=== PATIENT | female | born 1950 | race Caucasian/White ===

== ENCOUNTER → 2016-08-19 | Outpatient (CLI) | payer BC ==
[~2016-08-19] MED LIST: ADVAIR DIS1 PUFF/DO2 IH; COUMADIN2.5 MG PO; DELTASONE DPS20 MG PO; DUONEB DPS3 ML IH; LIALDA1.2 GM PO; LOMOTIL-DPS1 TAB PO; MONTELUKAST SOD10 MG PO; MUCINEX600 MG PO; SPIRIVA18 MCG IH; SYNTHROID DP0.075 MG PO; TYLENOL DPS325 MG PO; ZOCOR DPS20 MG PO
== END | disposition home or self-care (01) ==
DX: J44.9 Chronic obstructive pulmonary disease, unspecified (principal); R94.2 Abnormal results of pulmonary function studies; J98.4 Other disorders of lung; I51.89 Other ill-defined heart diseases; Z87.891 Personal history of nicotine dependence

== ENCOUNTER → 2016-09-23 | Outpatient (CLI) | payer BC | END | disposition home or self-care (01) | LOC: PTH.S 09-17 08:23 | DX: J44.9 Chronic obstructive pulmonary disease, unspecified (principal); R06.00 Dyspnea, unspecified; Z99.81 Dependence on supplemental oxygen ==

== ENCOUNTER 2016-11-23 13:05 | Emergency (ER) | payer BC ==
--- NOTE | 2016-12-11 20:23 | ER ---
ADMIT: 11/23/2016 RM/LOC: ER [facility] MR#: [id number] [address] [id number] DAGOBERTO SANCHEZ [address] [address] Emergency Room Report SEX: F AGE: 66 : 1950 DATE: 11/23/2016 ADDENDUM: The patient is a 66-year-old female with severe COPD, who was oxygen dependent, comes in with difficulty breathing and shortness of breath. This has been going on for several hours. Physical exam shows that she is tachypneic with decreased air movement throughout. While in the ER, we did get her Solu-Medrol 125 mg IV and breathing treatments. Her chest x-ray did not show any acute findings. CBC was unremarkable. CMP was also unremarkable. The patient was feeling much better in the ER after the steroids and breathing treatment. She does want to try to go home. So the patient is discharged home on prednisone, Z-Ramírez, and increased use of her albuterol nebulizer. She is to return to the ER for any concerning symptoms. Follow up at Dr. Briceño's office in the next week. DIAGNOSES: 1. Chronic obstructive pulmonary disease exacerbation. 2. Shortness of breath. Ernst Hale MD/ viktoria JOB #: [id number] CC: Ernst Hale MD, Attending Physician Bobo Briceño MD, Family Physician
== END 2016-11-23 15:22 | disposition home or self-care (01) ==
LOC: ER 13:05
DX: J44.1 Chronic obstructive pulmonary disease with (acute) exacerbation (principal); Z90.89 Acquired absence of other organs; Z90.49 Acquired absence of other specified parts of digestive tract; Z86.711 Personal history of pulmonary embolism; Z87.891 Personal history of nicotine dependence; Z88.7 Allergy status to serum and vaccine; Z91.041 Radiographic dye allergy status; Z88.8 Allergy status to other drugs, medicaments and biological substances; Z79.01 Long term (current) use of anticoagulants; Z79.899 Other long term (current) drug therapy

== ENCOUNTER 2016-11-24 12:51 | Emergency (ER) | payer BC ==
--- NOTE | 2016-11-25 16:09 | ER ---
ADMIT: 11/24/2016 RM/LOC: ER [facility] MR#: [id number] [facility] [id number] DAGOBERTO SANCHEZ [address] [place] [address] Emergency Room Report SEX: F AGE: 66 : 1950 DATE: 11/24/2016 ADDENDUM: A 66-year-old white female coming in with shortness of breath, has COPD exacerbation. Chest x-ray, nothing acute. CBC, chemistry, troponin, INR is 1.18. She is on Coumadin because of her history of PEs in the past. White count up I do believe from her steroids that essentially she needs. We gave her DuoNeb and 20 of Decadron IV. We are going to discharge her home. I spoke with Dr. Canales on the phone. They will get her into the office sometime next week. CONDITION AT DISCHARGE: Improved. Wayne Mcelroy MD/ viktoria JOB #: [id number] CC: Wayne Meclroy MD, Attending Physician UNKNOWN, Family Physician
== END 2016-11-24 15:27 | disposition home or self-care (01) ==
LOC: ER 12:51
DX: J44.1 Chronic obstructive pulmonary disease with (acute) exacerbation (principal); Z87.891 Personal history of nicotine dependence; Z79.01 Long term (current) use of anticoagulants; Z79.899 Other long term (current) drug therapy